=== PATIENT | female | born 1945 | race Hispanic/Latino ===

== ENCOUNTER 2020-12-18 20:24 | Inpatient (IN) | payer MEDICARE ==
[~2020-12-18] VITALS: Ht 160 cm; Wt 82.4 kg
[2020-12-18] MEDS ORDERED: ASPIRIN 81 MG CHEW TAB PO ONE ×2 (20:30→22:30)
[2020-12-18] MEDS ORDERED: HYDRALAZINE HCL 20 MG/ML VIAL IV STA (20:58)
[2020-12-18 21:12] LABS: BASOPHILS # (AUTO) 0.1 (0.0-0.1); BASOPHILS % 0.7 % (0.0-1.0); EOSINOPHILS # (AUTO) 0.4 (0.0-0.4); EOSINOPHILS % 3.1 % (0.0-6.0); HEMATOCRIT 37.4 % (34.2-44.1); HEMOGLOBIN 11.9 g/dL (12.0-16.0); LYMPHOCYTES # (AUTO) 5.4 (1.0-3.2); LYMPHOCYTES % 39.4 % (18.0-39.1); MEAN CORPUSCULAR HEMOGLOBIN 28.7 pg (28-32); MEAN CORPUSCULAR HGB CONC 31.8 g/dL (31-35); MEAN CORPUSCULAR VOLUME 90.1 fL (81-99); MONOCYTES # (AUTO) 1.4 (0.2-0.8); MONOCYTES % 10.1 % (4.4-11.3); NEUTROPHILS # (AUTO) 6.3 (2.1-6.9); NEUTROPHILS % 46.3 % (38.7-80.0); PLATELET COUNT 229 x10e3/uL (140-360); RED BLOOD COUNT 4.15 x10e6/uL (3.6-5.1); RED CELL DISTRIBUTION WIDTH 13.8 % (11.7-14.4)
[2020-12-18 21:30] LABS: ALBUMIN 3.4 g/dL (3.5-5.0); ANION GAP 17.3 mmol/L (8-16); CALCIUM 8.6 mg/dL (8.4-10.2); CREATININE, SERUM 1.27 mg/dL (0.57-1.11); POTASSIUM 4.3 mmol/L (3.5-5.1)
[2020-12-18 21:42] LABS: CREATINE KINASE MB 1.1 ng/mL (0-5.0)
[2020-12-18] MEDS ORDERED: ACETAMINOPHEN 325 MG TAB PO STA (22:21)
[2020-12-18 23:48] LABS: CREATINE KINASE MB 1.4 ng/mL (0-5.0)
[2020-12-19] VITALS (8 sets, daily range): BP systolic 112–177; BP diastolic 43–80
[2020-12-19] MEDS ORDERED: ASPIRIN 81 MG CHEW TAB PO ONE (01:45)
[2020-12-19] MEDS ORDERED: TRULICITY4.5 MG/0.5 SQ (04:45)
[2020-12-19] MEDS ORDERED: HUMULIN R100 UNIT/2 INJ (04:45)
[2020-12-19] MEDS ORDERED: LIPITOR20 MG PO (04:45)
[2020-12-19] MEDS ORDERED: METOPROLOL SUCC50 MG PO (04:45)
[2020-12-19] MEDS ORDERED: NEURONTIN300 MG PO (08:18)
[2020-12-19] MEDS ORDERED: METHOCARBAMOL750 MG PO (08:18)
[2020-12-19] MEDS ORDERED: PLAVIX75 MG PO (08:18)
[2020-12-19] MEDS ORDERED: AMLODIPINE BESY10 MG PO (08:18)
[2020-12-19] MEDS ORDERED: HUMALOG100 UNIT/1 SC (08:18)
[2020-12-19] MEDS ORDERED: NITROSTAT0.4 MG SL (08:18)
[2020-12-19] MEDS ORDERED: ASPIRIN81 MG PO (08:18)
[2020-12-19] MEDS ORDERED: PREDNISONE 20 MG TAB PO PRN ×3 (10:30→22:30)
[2020-12-19 10:33] LABS: CREATINE KINASE 46 IU/L (29-168)
[2020-12-19] MEDS ORDERED: SIMETHICONE 80 MG CHEW PO PRN (10:45)
[2020-12-19] MEDS ORDERED: DEXTROSE 50% SYRINGE 50 ML IV PRN (10:45)
[2020-12-19] MEDS ORDERED: HYDRALAZINE HCL 20 MG/ML VIAL IV PRN (10:45)
[2020-12-19] MEDS ORDERED: BENZONATATE 100 MG CAP PO PRN (10:45)
[2020-12-19] MEDS ORDERED: LIDOCAINE 4% PATCH TP PRN (10:45)
[2020-12-19] MEDS ORDERED: POTASSIUM CHLORIDE 20 MEQ TAB CR PO PRN (10:45)
[2020-12-19] MEDS ORDERED: POLYETHYLENE GLYCOL 3350 17 GM PACK PO PRN (10:45)
[2020-12-19] MEDS ORDERED: DIPHENHYDRAMINE HCL 25 MG CAP PO PRN ×2 (10:45→22:30)
[2020-12-19] MEDS ORDERED: DOCUSATE SODIUM 100 MG CAP PO PRN (10:45)
[2020-12-19] MEDS ORDERED: ONDANSETRON HCL INJ 2MG/ML 2ML 2 MG/ML VIAL IV PRN (10:45)
[2020-12-19] MEDS ORDERED: INSULIN LISPRO 100 UNIT/1 ML 3ML VIAL SQ SCH (11:30)
[2020-12-19] MEDS: AMLODIPINE BESYLATE 10 MG TAB PO SCH (12:27)
[2020-12-19] MEDS: CLOPIDOGREL BISULFATE 75 MG TAB PO SCH (12:27)
[2020-12-19] MEDS: ASPIRIN 81 MG CHEW TAB PO SCH (12:27)
[2020-12-19] MEDS: METOPROLOL SUCCINATE 50 MG TAB XL PO SCH (12:27)
[2020-12-19] MEDS: INSULIN LISPRO 100 UNIT/1 ML 3ML VIAL SQ SCH ×6 (12:28→21:00)
[2020-12-19] MEDS ORDERED: INSULIN LISPRO 20 UNIT SC SCH (13:00)
[2020-12-19] MEDS: GABAPENTIN 300 MG CAP PO SCH ×2 (15:31→21:00)
[2020-12-19] MEDS: ACETAMINOPHEN 325 MG TAB PO PRN (15:31)
[2020-12-19] MEDS ORDERED: MELATONIN 5 MG TABLET PO PRN (21:00)
[2020-12-19] MEDS: ENOXAPARIN INJ 80 MG/0.8 ML SYR SC SCH (21:00)
[2020-12-19] MEDS: ATORVASTATIN 40 MG TAB PO SCH (21:00)
[2020-12-19] MEDS ORDERED: IOPAMIDOL 370 MG/ML 200 ML INFUS..BTL INJ ONE (22:20)
[2020-12-19] MEDS ORDERED: SODIUM CHLORIDE 0.9% 500ML 500 ML IV ONE (23:15)
[2020-12-19] MEDS ORDERED: SODIUM CHLORIDE 0.9% 500ML 500 ML ONE (23:16)
[2020-12-20] VITALS (8 sets, daily range): BP systolic 133–164; BP diastolic 29–73
[2020-12-20 05:03] LABS: BASOPHILS % 0.2 % (0.0-1.0); HEMATOCRIT 34.9 % (34.2-44.1); HEMOGLOBIN 11.1 g/dL (12.0-16.0); LYMPHOCYTES # (AUTO) 2.7 (1.0-3.2); LYMPHOCYTES % 19.7 % (18.0-39.1); MEAN CORPUSCULAR HEMOGLOBIN 28.4 pg (28-32); MEAN CORPUSCULAR HGB CONC 31.8 g/dL (31-35); MEAN CORPUSCULAR VOLUME 89.3 fL (81-99); MONOCYTES # (AUTO) 0.2 (0.2-0.8); MONOCYTES % 1.6 % (4.4-11.3); NEUTROPHILS # (AUTO) 10.5 (2.1-6.9); NEUTROPHILS % 77.5 % (38.7-80.0); PLATELET COUNT 225 x10e3/uL (140-360); RED BLOOD COUNT 3.91 x10e6/uL (3.6-5.1); RED CELL DISTRIBUTION WIDTH 13.7 % (11.7-14.4)
[2020-12-20 05:21] LABS: ALBUMIN/GLOBULIN RATIO 0.9 (0.8-2.0); ANION GAP 14.1 mmol/L (8-16); CALCIUM 8.2 mg/dL (8.4-10.2); CREATININE, SERUM 1.22 mg/dL (0.57-1.11); POTASSIUM 5.1 mmol/L (3.5-5.1)
[2020-12-20 07:03] LABS: THYROID STIMULATING HORMONE 1.402 uIU/mL (0.350-4.940)
[2020-12-20] MEDS: INSULIN LISPRO 100 UNIT/1 ML 3ML VIAL SQ SCH ×8 (07:30→20:52)
[2020-12-20] MEDS ORDERED: ASPIRIN 81 MG CHEW TAB PO SCH (09:00)
[2020-12-20] MEDS ORDERED: CLOPIDOGREL BISULFATE 75 MG TAB PO SCH (09:00)
[2020-12-20] MEDS ORDERED: AMLODIPINE BESYLATE 10 MG TAB PO SCH (09:00)
[2020-12-20] MEDS ORDERED: METOPROLOL SUCCINATE 50 MG TAB XL PO SCH (09:00)
[2020-12-20] MEDS ORDERED: ATORVASTATIN 20 MG TAB PO SCH (09:00)
[2020-12-20] MEDS: ENOXAPARIN INJ 80 MG/0.8 ML SYR SC SCH ×2 (09:23→20:50)
[2020-12-20] MEDS ORDERED: REGADENOSON 0.4 MG/5 ML SYR IV ONE (09:30)
[2020-12-20] MEDS ORDERED: FUROSEMIDE INJ 10 MG/ML 4 ML VIAL IV ONE (11:30)
[2020-12-20] MEDS: NITROGLYCERIN 0.4 MG SUBL SL PRN (11:40)
[2020-12-20] MEDS: ASPIRIN 81 MG CHEW TAB PO SCH (11:40)
[2020-12-20] MEDS ORDERED: METOPROLOL TARTRATE INJ 1 MG/ML VIAL IV ONE (12:15)
[2020-12-20] MEDS: CLOPIDOGREL BISULFATE 75 MG TAB PO SCH (13:04)
[2020-12-20] MEDS: GABAPENTIN 300 MG CAP PO SCH ×3 (13:04→20:50)
[2020-12-20] MEDS: AMLODIPINE BESYLATE 10 MG TAB PO SCH (13:04)
[2020-12-20] MEDS: METOPROLOL SUCCINATE 50 MG TAB XL PO SCH (13:05)
[2020-12-20] MEDS: PANTOPRAZOLE SOD 40 MG TABEC PO SCH (13:06)
[2020-12-20] MEDS ORDERED: METOPROLOL TARTRATE INJ 1 MG/ML VIAL IV PRN (13:30)
[2020-12-20] MEDS: PREDNISONE 20 MG TAB PO SCH (16:29)
[2020-12-20] MEDS: DIPHENHYDRAMINE HCL 25 MG CAP PO SCH (20:50)
[2020-12-20] MEDS: ATORVASTATIN 40 MG TAB PO SCH (20:50)
[2020-12-20] MEDS: INSULIN GLARGINE 100 UNITS/ML VIAL SQ SCH (20:52)
[2020-12-21] VITALS (16 sets, daily range): BP systolic 113–165; BP diastolic 47–88
[2020-12-21] MEDS: SODIUM CHLORIDE 0.9% 1000ML 1,000 ML IV SCH ×4 (00:08→16:55)
[2020-12-21 06:46] LABS: BASOPHILS % 0.1 % (0.0-1.0); HEMATOCRIT 32.4 % (34.2-44.1); HEMOGLOBIN 10.6 g/dL (12.0-16.0); LYMPHOCYTES # (AUTO) 2.4 (1.0-3.2); LYMPHOCYTES % 16.6 % (18.0-39.1); MEAN CORPUSCULAR HEMOGLOBIN 29.7 pg (28-32); MEAN CORPUSCULAR HGB CONC 32.7 g/dL (31-35); MEAN CORPUSCULAR VOLUME 90.8 fL (81-99); MONOCYTES # (AUTO) 0.8 (0.2-0.8); MONOCYTES % 5.5 % (4.4-11.3); NEUTROPHILS # (AUTO) 11.3 (2.1-6.9); NEUTROPHILS % 76.8 % (38.7-80.0); PLATELET COUNT 207 x10e3/uL (140-360); RED BLOOD COUNT 3.57 x10e6/uL (3.6-5.1); RED CELL DISTRIBUTION WIDTH 13.9 % (11.7-14.4)
[2020-12-21 06:55] LABS: INR 1.12; PROTHROMBIN TIME 15.1 seconds (11.9-14.5)
[2020-12-21 06:56] LABS: PARTIAL THROMBOPLASTIN TIME 46.4 seconds (23.8-35.5)
[2020-12-21] MEDS: INSULIN LISPRO 100 UNIT/1 ML 3ML VIAL SQ SCH ×8 (07:30→20:25)
[2020-12-21 07:35] LABS: ALBUMIN/GLOBULIN RATIO 0.9 (0.8-2.0); ANION GAP 15.9 mmol/L (8-16); CALCIUM 7.9 mg/dL (8.4-10.2); CHOL/HDL RATIO 4.3 (3.0-3.6); CREATININE, SERUM 1.29 mg/dL (0.57-1.11); POTASSIUM 4.9 mmol/L (3.5-5.1)
[2020-12-21] MEDS: GABAPENTIN 300 MG CAP PO SCH ×3 (10:07→20:23)
[2020-12-21] MEDS: ASPIRIN 81 MG CHEW TAB PO SCH (10:07)
[2020-12-21] MEDS: PANTOPRAZOLE SOD 40 MG TABEC PO SCH (10:07)
[2020-12-21] MEDS: DIPHENHYDRAMINE HCL 25 MG CAP PO SCH ×2 (10:07→20:23)
[2020-12-21] MEDS: METOPROLOL SUCCINATE 50 MG TAB XL PO SCH ×3 (10:08→20:24)
[2020-12-21] MEDS: AMLODIPINE BESYLATE 10 MG TAB PO SCH (10:08)
[2020-12-21] MEDS: PREDNISONE 20 MG TAB PO SCH (10:08)
[2020-12-21] MEDS: CLOPIDOGREL BISULFATE 75 MG TAB PO SCH (10:08)
[2020-12-21] MEDS: ENOXAPARIN INJ 80 MG/0.8 ML SYR SC SCH (10:08)
[2020-12-21] MEDS ORDERED: HEPARIN SOD/SOD CHLORIDE 2,000 ML ONE (13:25)
[2020-12-21] MEDS ORDERED: LIDOCAINE HCL 2% LOCAL 20 ML VIAL ONE (13:25)
[2020-12-21] MEDS ORDERED: IOPAMIDOL 370 MG/ML 200 ML INFUS..BTL INJ ONE (13:25)
[2020-12-21] MEDS ORDERED: SODIUM CHLORIDE 0.9% 1000ML 1,000 ML ONE (13:40)
[2020-12-21] MEDS ORDERED: MIDAZOLAM HCL 2 MG/2 ML VIAL ONE (13:40)
[2020-12-21] MEDS ORDERED: FENTANYL CITRATE/PF 100MCG/2 ML INJ ONE (13:40)
[2020-12-21] MEDS: ACETAMINOPHEN 325 MG TAB PO PRN (19:56)
[2020-12-21] MEDS: ATORVASTATIN 40 MG TAB PO SCH (20:23)
[2020-12-21] MEDS: INSULIN GLARGINE 100 UNITS/ML VIAL SQ SCH (20:25)
[2020-12-21] MEDS: NITROGLYCERIN 0.4 MG SUBL SL PRN (20:30)
[2020-12-22] VITALS (10 sets, daily range): BP systolic 135–177; BP diastolic 49–98
[2020-12-22] MEDS: SODIUM CHLORIDE 0.9% 1000ML 1,000 ML IV SCH ×2 (02:30→12:31)
[2020-12-22 06:22] LABS: BASOPHILS % 0.1 % (0.0-1.0); HEMOGLOBIN 10.8 g/dL (12.0-16.0); LYMPHOCYTES # (AUTO) 3.4 (1.0-3.2); LYMPHOCYTES % 23.1 % (18.0-39.1); MEAN CORPUSCULAR HEMOGLOBIN 28.8 pg (28-32); MEAN CORPUSCULAR HGB CONC 31.8 g/dL (31-35); MEAN CORPUSCULAR VOLUME 90.7 fL (81-99); MONOCYTES # (AUTO) 1.5 (0.2-0.8); MONOCYTES % 10.5 % (4.4-11.3); NEUTROPHILS # (AUTO) 9.6 (2.1-6.9); NEUTROPHILS % 65.3 % (38.7-80.0); PLATELET COUNT 242 x10e3/uL (140-360); RED BLOOD COUNT 3.75 x10e6/uL (3.6-5.1); RED CELL DISTRIBUTION WIDTH 14.1 % (11.7-14.4)
[2020-12-22 06:50] LABS: ANION GAP 16.7 mmol/L (8-16); CREATININE, SERUM 1.18 mg/dL (0.57-1.11); POTASSIUM 4.7 mmol/L (3.5-5.1)
[2020-12-22] MEDS: INSULIN LISPRO 100 UNIT/1 ML 3ML VIAL SQ SCH ×8 (07:30→20:39)
[2020-12-22] MEDS: PANTOPRAZOLE SOD 40 MG TABEC PO SCH (08:42)
[2020-12-22] MEDS: ASPIRIN 81 MG CHEW TAB PO SCH (08:43)
[2020-12-22] MEDS: GABAPENTIN 300 MG CAP PO SCH ×3 (08:43→20:48)
[2020-12-22] MEDS: CLOPIDOGREL BISULFATE 75 MG TAB PO SCH (08:43)
[2020-12-22] MEDS: DIPHENHYDRAMINE HCL 25 MG CAP PO SCH ×2 (08:43→20:48)
[2020-12-22] MEDS: PREDNISONE 20 MG TAB PO SCH (08:44)
[2020-12-22] MEDS: AMLODIPINE BESYLATE 10 MG TAB PO SCH (08:46)
[2020-12-22] MEDS: METOPROLOL SUCCINATE 50 MG TAB XL PO SCH ×2 (08:47→20:48)
[2020-12-22] MEDS: ISOSORBIDE MONONITRATE 30 MG TAB CR PO SCH (15:35)
[2020-12-22] MEDS: INSULIN GLARGINE 100 UNITS/ML VIAL SQ SCH (20:39)
[2020-12-22] MEDS: ATORVASTATIN 40 MG TAB PO SCH (20:48)
[2020-12-23] VITALS (8 sets, daily range): BP systolic 136–164; BP diastolic 34–70
[2020-12-23] MEDS: INSULIN LISPRO 100 UNIT/1 ML 3ML VIAL SQ SCH ×8 (07:30→21:00)
[2020-12-23 07:39] LABS: ANION GAP 13.4 mmol/L (8-16); CALCIUM 7.8 mg/dL (8.4-10.2); CREATININE, SERUM 1.03 mg/dL (0.57-1.11); POTASSIUM 4.4 mmol/L (3.5-5.1)
[2020-12-23] MEDS: AMLODIPINE BESYLATE 10 MG TAB PO SCH (07:54)
[2020-12-23] MEDS: METOPROLOL SUCCINATE 50 MG TAB XL PO SCH ×2 (07:54→20:52)
[2020-12-23] MEDS: GABAPENTIN 300 MG CAP PO SCH ×3 (07:54→20:52)
[2020-12-23] MEDS: CLOPIDOGREL BISULFATE 75 MG TAB PO SCH (07:54)
[2020-12-23] MEDS: DIPHENHYDRAMINE HCL 25 MG CAP PO SCH ×2 (07:54→20:52)
[2020-12-23] MEDS: ISOSORBIDE MONONITRATE 30 MG TAB CR PO SCH (07:55)
[2020-12-23] MEDS: PANTOPRAZOLE SOD 40 MG TABEC PO SCH (07:55)
[2020-12-23] MEDS: ASPIRIN 81 MG CHEW TAB PO SCH (07:55)
[2020-12-23] MEDS: ACETAMINOPHEN 325 MG TAB PO PRN (11:03)
[2020-12-23 14:08] LABS: BASOPHILS % 0.2 % (0.0-1.0); EOSINOPHILS # (AUTO) 0.1 (0.0-0.4); EOSINOPHILS % 0.9 % (0.0-6.0); HEMATOCRIT 30.6 % (34.2-44.1); HEMOGLOBIN 9.7 g/dL (12.0-16.0); LYMPHOCYTES # (AUTO) 3.5 (1.0-3.2); LYMPHOCYTES % 23.3 % (18.0-39.1); MEAN CORPUSCULAR HEMOGLOBIN 28.4 pg (28-32); MEAN CORPUSCULAR HGB CONC 31.7 g/dL (31-35); MEAN CORPUSCULAR VOLUME 89.7 fL (81-99); MONOCYTES # (AUTO) 1.6 (0.2-0.8); MONOCYTES % 10.4 % (4.4-11.3); NEUTROPHILS # (AUTO) 9.5 (2.1-6.9); NEUTROPHILS % 64.4 % (38.7-80.0); PLATELET COUNT 200 x10e3/uL (140-360); RED BLOOD COUNT 3.41 x10e6/uL (3.6-5.1); RED CELL DISTRIBUTION WIDTH 14.1 % (11.7-14.4)
[2020-12-23] MEDS ORDERED: FUROSEMIDE INJ 10 MG/ML 4 ML VIAL IV NR (14:45)
[2020-12-23] MEDS: FUROSEMIDE 40 MG TAB PO SCH (19:45)
[2020-12-23] MEDS: ATORVASTATIN 40 MG TAB PO SCH (20:52)
[2020-12-23] MEDS: INSULIN GLARGINE 100 UNITS/ML VIAL SQ SCH (21:00)
[2020-12-24] VITALS (8 sets, daily range): BP systolic 125–157; BP diastolic 35–78
[2020-12-24] MEDS: INSULIN LISPRO 100 UNIT/1 ML 3ML VIAL SQ SCH ×8 (09:01→21:00)
[2020-12-24] MEDS: PANTOPRAZOLE SOD 40 MG TABEC PO SCH (09:07)
[2020-12-24] MEDS: ASPIRIN 81 MG CHEW TAB PO SCH (09:07)
[2020-12-24] MEDS: ISOSORBIDE MONONITRATE 30 MG TAB CR PO SCH (09:08)
[2020-12-24] MEDS: GABAPENTIN 300 MG CAP PO SCH ×3 (09:08→21:49)
[2020-12-24] MEDS: FUROSEMIDE 40 MG TAB PO SCH (09:08)
[2020-12-24] MEDS: METOPROLOL SUCCINATE 50 MG TAB XL PO SCH ×2 (09:09→21:49)
[2020-12-24] MEDS: AMLODIPINE BESYLATE 10 MG TAB PO SCH (09:09)
[2020-12-24] MEDS: CLOPIDOGREL BISULFATE 75 MG TAB PO SCH (09:09)
[2020-12-24] MEDS ORDERED: NITROGLYCERIN 0.4 MG SUBL SL PRN (10:00)
[2020-12-24 15:27] LABS: ANION GAP 16.2 mmol/L (8-16); CALCIUM 8.1 mg/dL (8.4-10.2); CREATININE, SERUM 1.22 mg/dL (0.57-1.11)
[2020-12-24 15:31] LABS: POTASSIUM 5.2 mmol/L (3.5-5.1)
[2020-12-24 17:35] LABS: BASOPHILS # (AUTO) 0.1 (0.0-0.1); BASOPHILS % 0.4 % (0.0-1.0); EOSINOPHILS # (AUTO) 0.5 (0.0-0.4); EOSINOPHILS % 3.4 % (0.0-6.0); HEMATOCRIT 37.8 % (34.2-44.1); HEMOGLOBIN 11.8 g/dL (12.0-16.0); LYMPHOCYTES # (AUTO) 4.8 (1.0-3.2); MEAN CORPUSCULAR HEMOGLOBIN 28.5 pg (28-32); MEAN CORPUSCULAR HGB CONC 31.2 g/dL (31-35); MEAN CORPUSCULAR VOLUME 91.3 fL (81-99); MONOCYTES # (AUTO) 1.1 (0.2-0.8); MONOCYTES % 7.7 % (4.4-11.3); NEUTROPHILS # (AUTO) 7.2 (2.1-6.9); NEUTROPHILS % 52.6 % (38.7-80.0); PLATELET COUNT 213 x10e3/uL (140-360); RED BLOOD COUNT 4.14 x10e6/uL (3.6-5.1); RED CELL DISTRIBUTION WIDTH 14.2 % (11.7-14.4)
[2020-12-24] MEDS ORDERED: SOD POLYSTYRENE SULFONATE SUSP 15 GM/60 ML BTL PO ONE (17:45)
[2020-12-24] MEDS ORDERED: FUROSEMIDE INJ 10 MG/ML 4 ML VIAL IV ONE (17:45)
[2020-12-24] MEDS: ATORVASTATIN 40 MG TAB PO SCH (21:49)
[2020-12-24] MEDS: INSULIN GLARGINE 100 UNITS/ML VIAL SQ SCH (23:03)
[2020-12-25 01:28] VITALS: BP 135/46
[2020-12-25 06:04] VITALS: BP 149/75
[2020-12-25 07:56] VITALS: BP 149/75
[2020-12-25 08:00] VITALS: BP 119/64
[2020-12-25] MEDS: ISOSORBIDE MONONITRATE 30 MG TAB CR PO SCH (08:32)
[2020-12-25] MEDS: ASPIRIN 81 MG CHEW TAB PO SCH (08:32)
[2020-12-25] MEDS: PANTOPRAZOLE SOD 40 MG TABEC PO SCH (08:32)
[2020-12-25] MEDS: GABAPENTIN 300 MG CAP PO SCH (08:33)
[2020-12-25] MEDS: CLOPIDOGREL BISULFATE 75 MG TAB PO SCH (08:33)
[2020-12-25] MEDS: FUROSEMIDE 40 MG TAB PO SCH (08:33)
[2020-12-25] MEDS: AMLODIPINE BESYLATE 10 MG TAB PO SCH (08:33)
[2020-12-25] MEDS: METOPROLOL SUCCINATE 50 MG TAB XL PO SCH (08:34)
[2020-12-25] MEDS: INSULIN LISPRO 100 UNIT/1 ML 3ML VIAL SQ SCH ×4 (10:29→11:53)
[2020-12-25 11:51] VITALS: BP 159/62
== END 2020-12-25 13:20 | disposition home or self-care (01) | DRG 287 ==
LOC: ER 20:39 → ERHOLD 12-19 01:41 → MED/SURG2 12-19 03:56 → OBSVTOIN 12-20 13:46
PROVIDERS: ADMIT Internal Medicine; ATTEND Internal Medicine
PROC: 4A023N7 Measurement of Cardiac Sampling and Pressure, Left Heart, Percutaneous Approach (ICD-10-PCS; principal; 2020-12-21)
PROC: B2181ZZ Fluoroscopy of Left Internal Mammary Bypass Graft using Low Osmolar Contrast (ICD-10-PCS; 2020-12-21)
PROC: B2121ZZ Fluoroscopy of Single Coronary Artery Bypass Graft using Low Osmolar Contrast (ICD-10-PCS; 2020-12-21)
PROC: B2151ZZ Fluoroscopy of Left Heart using Low Osmolar Contrast (ICD-10-PCS; 2020-12-21)
PROC: B2111ZZ Fluoroscopy of Multiple Coronary Arteries using Low Osmolar Contrast (ICD-10-PCS; 2020-12-21)
DX: I25.118 Atherosclerotic heart disease of native coronary artery with other forms of angina pectoris (principal); I25.708 Atherosclerosis of coronary artery bypass graft(s), unspecified, with other forms of angina pectoris; E11.22 Type 2 diabetes mellitus with diabetic chronic kidney disease; Z88.5 Allergy status to narcotic agent; Z88.8 Allergy status to other drugs, medicaments and biological substances; Z91.041 Radiographic dye allergy status; Z91.012 Allergy to eggs; E66.01 Morbid (severe) obesity due to excess calories; Z87.891 Personal history of nicotine dependence; E78.5 Hyperlipidemia, unspecified; I10 Essential (primary) hypertension; E11.51 Type 2 diabetes mellitus with diabetic peripheral angiopathy without gangrene; Z89.512 Acquired absence of left leg below knee; Z95.1 Presence of aortocoronary bypass graft; I35.0 Nonrheumatic aortic (valve) stenosis; Z68.32 Body mass index [BMI] 32.0-32.9, adult
CPT/HCPCS: 36415; 71045; 71260; 78452; 80048; 80053; 80061; 82550; 82553; 82948; 83036; 83880; 84132; 84443; 84484; 85025; 85379; 85610; 85730; 93005; 93017; 93306; 93459; 97139; 99152; 99153; 99251; 99285; A9502; C1769; C1887; G0378; J0360; J1650; J1815; J1940; J2001; J2250; J2405; J3010; J7030; J7040; J7512; Q9967; U0002